=== PATIENT | female | born 1995 | race Caucasian/White ===

== ENCOUNTER 2021-06-12 21:35 | Emergency (ER) | payer OTHER ==
[~2021-06-12] VITALS: Ht 152.4 cm; Wt 70.3 kg
[2021-06-13] MEDS ORDERED: PEPCID40 MG PO (02:18)
[2021-06-13] MEDS ORDERED: ZOFRAN4 MG PO (02:18)
== END 2021-06-13 02:31 ==
LOC: ER 21:35
DX: R50.9 Fever, unspecified (principal); Z03.818 Encounter for observation for suspected exposure to other biological agents ruled out

== ENCOUNTER 2022-07-15 21:03 | Emergency (ER) | payer OTHER ==
[~2022-07-15] VITALS: Ht 152.4 cm; Wt 63.5 kg
[~2022-07-15 21:03] MED LIST: PEPCID40 MG PO; ZOFRAN4 MG PO
[2022-07-16] MEDS ORDERED: LEVSIN/SL0.125 MG SL (01:43)
[2022-07-16] MEDS ORDERED: KETO10TA2 PO (01:43)
[2022-07-17] MEDS ORDERED: LEVSIN/SL0.125 MG SL (22:01)
== END 2022-07-16 01:53 ==
LOC: ER 21:03
DX: R10.2 Pelvic and perineal pain (principal); Z91.013 Allergy to seafood

== ENCOUNTER → 2022-07-17 | Emergency (ER) | payer OTHER ==
[~2022-07-17] VITALS: Ht 152.4 cm; Wt 61.2 kg
[~2022-07-17] MED LIST changes: +KETO10TA2 PO; +LEVSIN/SL0.125 MG SL
== END | disposition home or self-care (01) ==
LOC: ER 18:08
DX: R10.84 Generalized abdominal pain (principal); Z91.013 Allergy to seafood